=== PATIENT | male | born 1990 | race Caucasian/White ===

== ENCOUNTER 2023-05-03 21:36 | Emergency (ER) | payer SELFPAY ==
[~2023-05-03] VITALS: Ht 172.7 cm; Wt 104.3 kg
[2023-05-03 21:36] VITALS: BP 138/80
[2023-05-03 21:40] VITALS: BP 138/80
--- NOTE | 2023-05-03 21:44 | NUR ---
PT GUDELIA RODRIGEZ. TAKEN TO BED 2. CYRIL LLOYD AT BEDSIDE FOR PRE-BOOKING
--- NOTE | 2023-05-03 22:05 | NUR ---
32 Y/O M bib [facility] prsents with chest pain /, SOB and wheezing. pt has abrasion on L knee due to running from police and fell while running. [place] [employer] at bedside and on scene. pt denies any NVD or headaches. pt A&Ox4, skin intact. pmh- asthma NKA meds-inhaler
--- NOTE | 2023-05-03 22:14 | NUR ---
Dr. Islas examining patient.
[2023-05-03] MEDS ORDERED: ACETAMINOPHEN EXTRA STRENGTH 500 MG TAB PO ONE (22:20)
[2023-05-03] MEDS ORDERED: BACITRACIN OINT 500 UNITS/GM PKT TP ONE (22:20)
--- NOTE | 2023-05-03 22:30 | NUR ---
pt refused all medications and xrays. Dr. Islas notified
--- NOTE | 2023-05-03 22:45 | NUR ---
Patient discharged with v/s stable. Written and verbal after care instructions given and explained. Patient verbalized understanding. Police with in custody. All questions addressed prior to discharge. Advised to follow up with PMD. pt left AMA. Dr Islas notified
--- NOTE | 2023-05-03 22:47 | NUR ---
pt lft AMA, forms signed and Dr. Islas notified
== END 2023-05-03 22:47 | disposition left against medical advice (07) ==
LOC: MED 21:36
DX: S80.02XA Contusion of left knee, initial encounter (principal); S80.01XA Contusion of right knee, initial encounter; R00.0 Tachycardia, unspecified; X58.XXXA Exposure to other specified factors, initial encounter; Y92.89 Other specified places as the place of occurrence of the external cause; Y93.89 Activity, other specified; Y99.8 Other external cause status
CPT/HCPCS: 90715; 99283